=== PATIENT | female | born 1960 | race American Indian/Alaskan Native ===

== ENCOUNTER 2018-03-29 08:16 | Emergency (ER) | payer MEDICAID ==
[2018-03-29 08:33] VITALS: BP 106/76
--- NOTE | 2018-03-29 08:52 | Emergency Department Report ---
ED Upper Extremity Inj HPI - General Chief Complaint: Extremity Problem,Nontraumatic Stated Complaint: RT PINKY FINGER/PAIN/COLD Time Seen by Provider: 03/29/18 08:40 Source: patient Mode of arrival: Ambulatory Limitations: No Limitations - History of Present Illness Initial Comments: Patient comes to the ER today complaining of pain in her hands status post ground-level fall yesterday. It is no swelling on examination of lacerations or abrasions. No other injury. Patient states she fell cleaning. Patient also states that she has had a cold off and on for a couple weeks. She said it gets worse after a rain. She has a cough. No fever. -: Gradual, days(s) Other Extremity Injury: Hand: Right Other Injuries: none Handedness: right Place: home Improves With: none Worsens With: none Context: fall Associated Symptoms: denies other symptoms - Related Data Home Medications Medication Instructions Recorded Confirmed Last Taken LORazepam [Ativan] 1 mg PO QHS 08/12/15 08/12/15 08/11/15 1mg Propranolol HCl 10 mg PO TID 08/12/15 08/12/15 08/11/15 10mg risperiDONE [RisperDAL] 2 mg PO QHS 08/12/15 08/12/15 08/11/15 2mg Previous Rx's Medication Instructions Recorded Last Taken Type Benzonatate [Tessalon Perles] 100 mg PO Q8HR PRN #20 capsule 03/29/18 Unknown Rx Fluticasone [Flonase] 1 spray NS QDAY #1 bottle 03/29/18 Unknown Rx Allergies Allergy/AdvReac Type Severity Reaction Status Date / Time No Known Allergies Allergy Verified 04/15/13 10:26 ED Review of Systems ROS: Stated complaint: RT PINKY FINGER/PAIN/COLD Other details as noted in HPI Comment: All other systems reviewed and negative Constitutional: denies: chills, fever Eyes: denies: eye pain, eye discharge ENT: denies: ear pain, throat pain Respiratory: see HPI, cough. denies: orthopnea Cardiovascular: denies: chest pain, palpitations, dyspnea on exertion, orthopnea Endocrine: denies: see HPI Gastrointestinal: denies: vomiting Genitourinary: denies: dysuria Musculoskeletal: as per HPI, other (right hand pain and pain). denies: back pain Skin: denies: lesions Neurological: denies: headache Psychiatric: denies: anxiety Hematological/Lymphatic: denies: as per HPI, easy bleeding ED Past Medical Hx - Past Medical History Hx Hypertension: Yes Hx Psychiatric Treatment: Yes (bipolar,SCHIZO) Hx HIV: Yes Additional medical history: Bipolar disease - Surgical History Past Surgical History?: Yes Additional Surgical History: hx. of fibroids removed - Family History Family history: no significant - Social History Smoking Status: Current Every Day Smoker Substance Use Type: None - Medications Home Medications: Home Medications Medication Instructions Recorded Confirmed Last Taken Type LORazepam [Ativan] 1 mg PO QHS 08/12/15 08/12/15 08/11/15 History 1mg Propranolol HCl 10 mg PO TID 08/12/15 08/12/15 08/11/15 History 10mg risperiDONE [RisperDAL] 2 mg PO QHS 08/12/15 08/12/15 08/11/15 History 2mg Benzonatate [Tessalon Perles] 100 mg PO Q8HR PRN #20 capsule 03/29/18 Unknown Rx Fluticasone [Flonase] 1 spray NS QDAY #1 bottle 03/29/18 Unknown Rx ED Physical Exam - General Limitations: No Limitations General appearance: alert, in no apparent distress - Head Head exam: Present: atraumatic, normocephalic - Eye Eye exam: Present: normal appearance, PERRL Pupils: Present: normal accommodation - ENT ENT exam: Present: normal exam, mucous membranes moist - Neck Neck exam: Present: normal inspection - Respiratory Respiratory exam: Present: normal lung sounds bilaterally - Cardiovascular Cardiovascular Exam: Present: regular rate - GI/Abdominal GI/Abdominal exam: Present: soft, normal bowel sounds - Extremities Exam Extremities exam: Present: normal inspection, full ROM - Expanded Upper Extremity Exam Right Upper Arm exam: Present: normal inspection Elbow exam: Present: normal inspection Forearm Wrist exam: Present: normal inspection Hand Wrist exam: Present: full ROM. Absent: tenderness, swelling, abrasion, laceration, ecchymosis, deformity, crepidus, dislocation, erythema, amputation, nail avulsion, subungual hematoma Hand L/R Back: 1 - pain at indicated area Neurosensory exam: Present: radial nerve intact, ulnar nerve intact, median nerve intact Vascular: Present: normal capillary refill, radial pulse, brachial pulse, ulnar pulse. Absent: vascular compromise ED Course Vital Signs 03/29/18 03/29/18 08:31 09:02 Temperature 97.5 F L Pulse Rate 95 H Respiratory 20 18 Rate Blood Pressure 106/76 O2 Sat by Pulse 99 Oximetry ED Medical Decision Making - Radiology Data Radiology results: report reviewed, image reviewed - Medical Decision Making no fx full rom neurovascular intact no snuff box tenderness no fever no cough here in er ambulatory taking po dc home with otc cold meds - Differential Diagnosis ro fx Critical care attestation.: If time is entered above; I have spent that time in minutes in the direct care of this critically ill patient, excluding procedure time. ED Disposition Clinical Impression: Arthritis, Viral respiratory illness Disposition: DC-01 TO HOME OR SELFCARE Is pt being admited?: No Does the pt Need Aspirin: No Condition: Stable Instructions: Osteoarthritis (ED), Upper Respiratory Infection (ED) Additional Instructions: motrin or tylenol for pain or fever continue home meds follow up pcp if persists hydrate well with water Prescriptions: Benzonatate [Tessalon Perles] 100 mg PO Q8HR PRN #20 capsule PRN Reason: Cough Fluticasone [Flonase] 1 spray NS QDAY #1 bottle Referrals: PRIMARY CAREMD [Primary Care Provider] - 3-5 Days RU DICKERSON MD [Staff Physician] - 3-5 Days Time of Disposition: 11:01
[2018-03-29] MEDS ORDERED: IBUPROFEN PO ONE (08:53)
--- NOTE | 2018-03-29 10:56 | XRay Report ---
RIGHT HAND RADIOGRAPHS INDICATION: Pain after fall. COMPARISON: None similar. FINDINGS: AP, lateral and oblique right hand radiographs demonstrate osteopenia/osteoporosis. Intact bony articulation without focal suspicious erosions. Slight degenerative spurring as at the DIP joints. Grossly unremarkable soft tissues. CONCLUSION: No acute right hand radiographic abnormality with few other findings, as above. Please correlate. Thank you for the opportunity to participate in this patient's care.
== END 2018-03-29 11:20 | disposition home or self-care (01) ==
LOC: ED 08:16
DX: M13.841 Other specified arthritis, right hand (principal); I10 Essential (primary) hypertension; F31.9 Bipolar disorder, unspecified; F20.0 Paranoid schizophrenia; F17.200 Nicotine dependence, unspecified, uncomplicated; B97.4 Respiratory syncytial virus as the cause of diseases classified elsewhere
CPT/HCPCS: 99283